=== PATIENT | male | born 1965 | race African-American/Black ===

== ENCOUNTER 2023-01-24 07:36 | Emergency (ER) | payer MEDICAID ==
[2023-01-24] MEDS ORDERED: PHENYLEPH/PRAMOXIN/GLYCR/PET RECTAL CREAM 26GM PR STA (07:50)
[2023-01-24 07:55] VITALS: O2SAT 99
[2023-01-24] MEDS ORDERED: ACETAMINOPHEN 325MG TABLET PO ONE (08:00)
[2023-01-24] MEDS ORDERED: DOCU-155 PO (09:08)
[2023-01-24] MEDS ORDERED: GLYC1MED47 TP (09:08)
[2023-01-24] MEDS ORDERED: LIDO15CR11 TP (09:08)
[2023-01-24] MEDS ORDERED: METH500T4 PO (09:08)
[2023-01-24] MEDS ORDERED: ACET-2708 PO (09:08)
[2023-01-24] MEDS ORDERED: ACETAMINOPHEN 500MG TABLET PO NR (09:45)
[2023-01-24 09:58] VITALS: TEMP 97.9
[2023-01-24 10:00] VITALS: BP 135/82; PULSE 78; RESP 20
== END 2023-01-24 10:02 | disposition home or self-care (01) ==
LOC: ER 07:36
DX: K64.9 Unspecified hemorrhoids (principal)
CPT/HCPCS: 99282